=== PATIENT | female | born 1995 | race Caucasian/White ===

== ENCOUNTER → 2024-03-13 | Outpatient (CLI) | payer BC ==
[2024-03-13 15:47] VITALS: BP 126/91; PULSE 70; RESP 16; TEMP 98.2
--- NOTE | 2024-03-13 17:04 | P.SLEEP ---
History of Present Illness DATE: 03/13/2024 CONSULTATION/NEW PATIENT EVALUATION HISTORY OF PRESENT ILLNESS/SLEEP-WAKE EVALUATION: 29-year-old lady had been evaluated in the sleep center for possible obstructive sleep apnea hypopnea syndrome and significant excessive daytime sleepiness. SLEEP SCHEDULE: Usually sleep schedule from 10 PM to 5:30 AM on weekdays and from 1112 midnight until 910 AM on weekend. FALLING ASLEEP: Patient has difficulties to fall asleep, but not every night. Patient has TV set in bedroom. DURING SLEEP: Patient sleeps on the side and stomach position with snoring, awakenings from sleep up to 2 times with dry mouth, panic attacks, sweating. No history of hypnogogical hallucinations, sleep paralysis, or cataplexy. DURING THE DAY/WAKE STATE: In the morning patient wake up tired, has difficulties to pay attention, falling asleep during the day. Positive history of difficulties with concentration, irritability, depression, anxiety.. [place] sleepiness scale is significantly increased to 14. Patient may take up to 3 naps during the day. PAST MEDICAL HISTORY: Headaches, psoriatic arthritis. PAST SURGICAL HISTORY: Adenoidectomy and tonsillectomy in 2007. MEDICATIONS: Please see below. SOCIAL HISTORY: Please see below. FAMILY HISTORY: Hypertension, heart problems, sleep apnea, diabetes. REVIEW OF SYSTEMS: Snoring, awakenings from sleep, sleepiness during the day, difficulties to initiate sleep. No fevers. No double vision. No recent chest pain. No shortness of breath. No abdominal pain. No bleeding episodes. No blood in urine. No seizure episodes. PHYSICAL EXAMINATION: GENERAL: A pleasant patient without any distress. VITAL SIGNS: Please see below. HEENT: PERRLA, EOMI. Evaluation of oropharynx showed tongue protrudes midline, low position of soft palate Mallampati 4. NECK: Supple. No JVD. Thyroid is not palpable. LUNGS: Clear to percussion and to auscultation. Good air exchange. No wheezing or rhonchi. HEART: S1, S2 regular. No murmurs, gallops or rubs. ABDOMEN: Soft and nontender. Bowel sounds are present. No organomegaly appreciated. EXTREMITIES: No clubbing or cyanosis. AUTO SERVICE DISPATCHER: Awake, alert, and oriented x3. Cranial nerves 2 to 7 intact. There is no fasciculation or atrophy noted. No focal deficits observed. ASSESSMENT: 1. Snoring, awakenings from sleep, extremely low position of soft palate Mallampati 4. Possible obstructive sleep apnea hypopnea syndrome. 2. Significant excessive daytime sleepiness with [place] Sleepiness Scale 14 dictate necessity to include narcolepsy and hypersomnia and differential diagnosis. 3. Difficulties to initiate sleep secondary to psychophysiological insomnia and anxiety. 4. Anxiety. 5. Headaches. 6 . Sinuses problems. 7. Psoriatic arthritis. 8. Neck problems. 9. Movements during the sleep, possibly periodic limb movements PLAN: 1. Home sleep apnea test for evaluation of patient's breathing during sleep. 2. Following plan after reading sleep study. If sleep study will be negative for obstructive sleep apnea hypopnea syndrome we will have to proceed with multiple sleep latency test for objective relation symptoms of excessive daytime sleepiness and also to check during polysomnogram for possible periodic limb movements. 3. Preferable position during sleep on the side. 4. No driving if patient feels any sleepiness. Patient is aware of civil and criminal liability for unsafe driving. 5. Sleep hygiene with regular sleep time for at least 7.5-8 hours. 6. Watching weight. 7. I discussed with patient psychological techniques for treatment of insomnia including stimulus control, paradoxical intention, worry time, no watching clock, regulating sleep schedule. Thank you very much for referring this patient for consultation. Sincerely, Terry Orantes MD, PhD, FAASM. Diplomat of [employer], Sleep Medicine Board by [employer] [place] [employer] [place] [employer] [facility] [place] cc: Karyna Mendez MD Past Medical History Past Medical History: Asthma Additional Past Medical History / Comment(s): Arthritis Psoriatric, pre diabetic Hypoglcemic History of Any Multi-Drug Resistant Organisms: None Reported Past Surgical History: Adenoidectomy, Tonsillectomy Past Anesthesia/Blood Transfusion Reactions: Motion Sickness, Postoperative Nausea & Vomiting (PONV) Past Psychological History: Anxiety Smoking Status: Never smoker Past Alcohol Use History: Occasional Past Drug Use History: None Reported - Past Family History Mother Family Medical History: GERD/Reflux, Hypertension Additional Family Medical History / Comment(s): sinus headaches, Father Family Medical History: Coronary Artery Disease (CAD), Hyperlipidemia, Sleep Apnea/CPAP/BIPAP Additional Family Medical History / Comment(s): angina, snoring Brother(s) Family Medical History: Asthma Additional Family Medical History / Comment(s): insomnia, adhd Medications and Allergies Home Medications Medication Instructions Recorded Confirmed Type ALPRAZolam [Xanax] See Rx Instructions .ROUTE 03/13/24 03/13/24 History .COMPLEX PRN Cetirizine HCl [Zyrtec] 10 mg PO DAILY 03/13/24 03/13/24 History Cholecalciferol (Vitamin D3) See Rx Instructions .ROUTE .COMPLEX 03/13/24 03/13/24 History [Vitamin D3 (1250 Mcg = 50,000 Iu)] Cyclobenzaprine [Flexeril] 5 mg PO HS 03/13/24 03/13/24 History Escitalopram [Lexapro] 10 mg PO DAILY 03/13/24 03/13/24 History Levonorgestrel/Ethin.estradiol See Rx Instructions .ROUTE .COMPLEX 03/13/24 03/13/24 History [Levonorgestrel/Ethin.estradiol Triphasic] Upadacitinib [Rinvoq] 15 mg PO DAILY 03/13/24 03/13/24 History Physical Exam Vitals: Vital Signs Temp Pulse Resp BP Pulse Ox 03/13/24 15:46 98.2 F 70 16 126/91 98 Intake and Output 03/13/24 03/13/24 03/13/24 06:59 14:59 22:59 Other: Weight 69.4 kg Sleep Note - Sleep Data ESS Total: 14 - Sleep Note Sleep Note: Temperature: 98.2 F Pulse Rate: 70 Respiratory Rate: 16 Blood Pressure: 126/91 SpO2: 98 Height: 5 ft 2.5 in Weight: 69.4 kg BMI: Neck Circumference: 13.2
== END ==
LOC: 3 N SLEEP 14:57
PROVIDERS: ATTEND Internal Medicine
DX: G47.33 Obstructive sleep apnea (adult) (pediatric)
CPT/HCPCS: 99202

== ENCOUNTER → 2024-04-03 | Outpatient (CLI) | payer BC ==
--- NOTE | 2024-04-04 13:39 | P.PCN ---
Description of Procedure: CLINICAL: A home sleep apnea test has been done for confirmation of possible obstructive sleep apnea-hypopnea syndrome. DESCRIPTION OF PROCEDURE: RESULTS: Recording time was 8 hours 24 minutes. Evaluation time was 8 hours 12 minutes. Evaluation time is sufficient for making conclusion about results of the test. Raw data of sleep recording has been reviewed and is adequate. Respiratory channel showed 15 apneas and 12 hypopneas. Apnea-hypopnea index was 3.3 per hour. Pulse rate in the range between minimum 55, maximum 114, average 71 by computer calculation. Lowest desaturation was 82%. IMPRESSION: 1. No significant respiratory abnormalities given documented during home sleep apnea test. 2. Patient presents with symptoms of significant excessive daytime sleepiness with high [employer] Sleepiness Scale which dictate necessity to include hypersomnia and narcolepsy and differential diagnosis. Please see other impressions from consultation. PLAN: 1. Multiple sleep latency test for objective evaluation symptoms of significant excessive daytime sleepiness for differential diagnosis with narcolepsy. We will also check for possible periodic limb movements with polysomnogram. 2. Following plan after reading sleep study. 3. Watching weight. 4. Sleep hygiene with regular time in bed for at least 8 hours. 5. No driving if feeling any sleepiness. Thank you very much for allowing me to participate in the management of your patient. Sincerely, Terry Orantes MD, PhD, FAASM Diplomat of [employer] Sleep Medicine Board of [employer] [facility] [place] cc: Brenda Mendez MD
== END ==
LOC: 3 N SLEEP 10:53
PROVIDERS: ATTEND Internal Medicine